=== PATIENT | male | born 2000 | race Caucasian/White ===

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

== ENCOUNTER 2024-07-15 18:35 | Emergency (ER) | payer OTHER, SELFPAY ==
[2024-07-15 18:36] VITALS: BP 131/81; PULSE 106; RESP 18; TEMP 38.9; O2SAT 99; BMI 27.2
[2024-07-15] MEDS: Acetaminophen 500 MG Tablet 1000 MG PO (19:26)
[2024-07-15] MEDS: Ibuprofen 600 MG Tablet PO (19:26)
--- NOTE | 2024-07-15 19:30 | RAD_ITS ---
INDICATION: cough EXAMINATION/TECHNIQUE: X-RAY - XR Chest 2 Views COMPARISON: December 08, 2019 FINDINGS: LINES/DEVICES: None. LUNGS: Mild left basilar infiltrate/atelectasis. No pneumothorax. MEDIASTINUM AND CARDIOVASCULAR STRUCTURES: Cardiac silhouette not enlarged. Central airways and mediastinal contour are unremarkable. BONES AND SOFT TISSUES: Unremarkable. RAD/Chest PA and Lateral IMPRESSION: Mild left basilar infiltrate/atelectasis. Electronically Signed: Kit Lopez DO at 20:28 EDT ,
[2024-07-15 19:39] VITALS: BP 124/86; PULSE 88; RESP 16; TEMP 38.8; O2SAT 98
--- NOTE | 2024-07-15 19:41 | EDS_ITS ---
HPI <ANA Arvizu - Last Filed: 07/15/24 21:06> History of Present Illness Chief Complaint: Cold Sx Narrative Narrative: Patient is a 24-year-old male with no significant medical history presents to the emergency department for 2 days of generalized cough, body aches, fever and chills. Patient denies any sick contacts. Pay states he has been taking Tylenol and is only helping slightly. Patient states that he does have a cough with some yellow sputum production. Here for evaluation. [facility] <ANA Arvizu - Last Filed: 07/15/24 21:06> [facility] Medical History (Updated 07/15/24 @ 22:[address] Johnnie Carrero MD) Abnormal EKG Costochondritis Shortness of breath Syncope Chest pain Allergic rhinitis ADHD Home Medications ?Medication ?Instructions ?Recorded ?Last Taken ?Type fluticasone propionate 50 2 spray intranasal DAILY 08/10/20 Unknown History mcg/actuation nasal spray,suspension (Allergy Relief (fluticasone)) loratadine 10 mg tablet (Claritin) 10 mg PO DAILY 08/10/20 Unknown History methylphenidate HCl 50 mg biphasic 50 mg PO QAM 08/10/20 Unknown History 30-70 capsule,extended release naproxen 250 mg tablet 250 mg PO BID PRN 08/10/20 Unknown History albuterol sulfate 90 mcg/actuation 2 puff inhalation Q4H PRN PRN 07/15/24 Unknown Rx aerosol inhaler (Ventolin HFA) Wheezing 2 weeks #8.5 grams doxycycline hyclate 100 mg capsule 100 mg PO BID 7 days #14 caps 07/15/24 Unknown Rx Allergy/AdvReac Type Severity Reaction Status Date / Time methylphenidate (From Allergy Intermediate nausea, Verified 07/15/24 18:39 Concerta) increased agitation black pepper Allergy Nausea/Vom/ Verified 07/15/24 18:39 Diarrhea Penicillins Allergy Hives Verified 07/15/24 18:39 shrimp Allergy Other Verified 07/15/24 18:39 Family History Grandfather Heart disease ashley, vtach Other Myocardial infarction Social History Smoking Status: Never smoker alcohol intake: never substance use type: does not use ROS <ANA Arvizu - Last Filed: 07/15/24 21:06> ROS ED ROS Narrative Constitutional: Negative for weight loss, weakness. Positive fever and chills Eyes: Negative for vision loss, vision change, double vision ENT: Negative for any sore throat, ear pain, congestion Cardiovascular: Negative for any chest pain, tightness, palpitations Respiratory: Negative for any hemoptysis, dyspnea, dyspnea on exertion, orthopnea. Positive cough, sputum production Gastrointestinal: Negative for any abdominal pain, nausea, vomiting, diarrhea, constipation, blood in stool, blood in vomit : Negative for any urinary frequency, dysuria, retention, blood in urine Muscle skeletal: Negative for any neck pain, back pain. Positive for myalgias Neurological: Negative for any headache, syncope, dizziness Skin: Negative for any rashes, itching, abrasions, lacerations Psychiatric: Negative for any depression, anxiety, stress, suicidal ideation, homicidal ideation Hematologic: Negative for any excessive bruising, easy bleeding EXAM <ANA Arvizu - Last Filed: 07/15/24 21:06> Physical Exam Narrative Exam Narrative: Vital signs reviewed. HEET: Head normocephalic atraumatic, TMs clear bilaterally, external auditory canals are slightly erythematous however patient is fevered. Posterior pharynx is clear, moist mucous membranes. Nares clear bilaterally. Neck: Supple with no lymphadenopathy or tenderness. No signs of meningismus. Cardiac: Regular rate and rhythm no murmurs gallops or rubs, equal peripheral pulses bilaterally. Respiratory: Lungs clear to auscultation bilaterally. No chest tenderness. Abdomen: Soft, nontender, nondistended. No abdominal bruit or pulsatile masses. No hepatosplenomegaly Extremities: No peripheral edema, no signs of gross trauma or deformity. Active full range of motion of all extremities. Neuro: Cranial nerves II through XII intact, no focal neurological deficits. Skin: Clean dry and intact with no rash, purpura, petechiae, vesicles or pustules. Backs/flank: No CVA tenderness, no midline spinal tenderness, no deformity. Psych: Normal mood and affect. No SI, HI or acute psychosis. Const Vital Signs: 07/15/24 18:36 07/15/24 19:12 07/15/24 19:39 Temperature 102.1 F H 101.8 F H Temperature Source Oral Oral Pulse Rate 106 H 88 Respiratory Rate 18 16 Respiratory Pattern Normal Blood Pressure 131/81 H 124/86 H Blood Pressure Mean 97 98 Pulse Ox 99 98 Oxygen Delivery Method Room Air 07/15/24 20:00 Temperature 101.5 F H Temperature Source Oral Pulse Rate 78 Respiratory Rate 16 Respiratory Pattern Blood Pressure 133/72 H Blood Pressure Mean 92 Pulse Ox 98 Oxygen Delivery Method Room Air Positive well nourished and well developed General Appearance ED: well developed <Dr. Johnnie Carrero MD - Last Filed: 07/15/24 22:32> Physical Exam Const Vital Signs: 07/15/24 18:36 07/15/24 19:12 07/15/24 19:39 Temperature 102.1 F H 101.8 F H Temperature Source Oral Oral Pulse Rate 106 H 88 Respiratory Rate 18 16 Respiratory Pattern Normal Blood Pressure 131/81 H 124/86 H Blood Pressure Mean 97 98 Pulse Ox 99 98 Oxygen Delivery Method Room Air 07/15/24 20:00 Temperature 101.5 F H Temperature Source Oral Pulse Rate 78 Respiratory Rate 16 Respiratory Pattern Blood Pressure 133/72 H Blood Pressure Mean 92 Pulse Ox 98 Oxygen Delivery Method Room Air MDM <ANA Arvizu - Last Filed: 07/15/24 21:06> MDM Radiography Diagnostic Testing: Clinical Impression(s) from Imaging Studies Chest X-Ray 07/15/24 19:30 IMPRESSION: Mild left basilar infiltrate/atelectasis. Electronically Signed: Kit Lopez DO at 20:28 EDT Reading Location ID and State: [facility] / [place] Tel [phone], Service support , Treatment and Re-Evaluation :: Differential diagnosis includes however is not limited to: Community-acquired pneumonia, COVID-19, influenza, other virus, Patient does appear uncomfortable secondary his fever however he is not in any distress, patient is nontoxic. Presenting to the emergency department for complaints of cough, fever chills. Patient received a COVID-19 influenza RSV swab as well as a two-view chest x-ray. Oral Tylenol and ibuprofen given. Patient will be reevaluated. All radiologic examinations were read, reviewed by the emergency department attending. From these reads, a plan of care will be put in place. Patient on reevaluation was improving. His temperature and heart rate did decrease. Patient's chest x-ray two-view showed mild left basilar infiltrate. Secondary the patient's cough, patient will be treated with doxycycline twice a day for 1 week. Patient's COVID-19 influenza RSV was negative. At this time, I spoke with the patient as well as the patient's father, they should inspect the patient to improve in the next 2 days. If the patient has worsening fever and chills, worsening shortness of breath, nausea vomiting, the patient needs to return. All questions answered, stable for discharge. <Dr. Johnnie Carrero MD - Last Filed: 07/15/24 22:32> [facility] MDM Narrative Medical decision making narrative: I have personally performed a face to face assessment of the patient and have reviewed the [place] Note. I performed a substantive portion of the visit including all aspects of the following. My torres findings include: History is remarkable for Tmax of 102.1, rhinorrhea, congestion, productive cough of green sputum. Illness started yesterday. Productive cough started today. He had no ill contacts. He denies headache, visual, ocular auditory symptoms. He denies GI symptoms. Exam is vital signs remarkable for temperature of 102.1. He is tachycardic. Blood pressure slightly elevated. He appears flushed. HEENT exam is marked for rhinorrhea/congestion. Lungs are clear auscultation. There is no egophony. Heart is regular without murmur, gallop or rub. Abdomen is benign. No dermatologic lesions other than his face being flushed. Medical Decision Making suspect this is a upper respiratory infection. Need to evaluate for pneumonia. Other additions or changes: X-rays independently viewed interpreted by me as positive for atelectasis left lower lobe versus infiltrate.. In light of this finding patient was reauscultated and there is no abnormal breath sounds noted on the left side. Patient and father were told this most likely represents a viral illness. Awaiting rapid antigen for COVID, influenza and RSV. Radiography Diagnostic Testing: Clinical Impression(s) from Imaging Studies Chest X-Ray 07/15/24 19:30 IMPRESSION: Mild left basilar infiltrate/atelectasis. Electronically Signed: Kit Lopez DO at 20:28 EDT Reading Location ID and State: [facility] / [place] Tel [phone], Service support , Discharge Plan Triage Chief Complaint: Cold Sx ED Midlevel Provider: Mandeep Ware ED Provider: Johnnie Carrero Dx/Rx/DC Orders Clinical Impression: Community acquired pneumonia, Fever in adult Instructions: Chest and Lung Problems, ED Pneumonia (Adult) Prescriptions: New doxycycline hyclate 100 mg capsule 100 mg PO BID 7 Days Qty: 14 0RF albuterol sulfate [Ventolin HFA] 90 mcg/actuation HFA aerosol inhaler 2 puff inhalation Q4H PRN PRN (Reason: Wheezing) 14 Days Qty: 8.5 0RF No Action methylphenidate HCl 50 mg capsule, ER biphasic 30-70 50 mg PO QAM Patient Comments: take 1 capsule by mouth every morning fluticasone propionate [Allergy Relief (fluticasone)] 50 mcg/actuation spray,suspension 2 spray INTRANASAL DAILY Rx Instructions: administer into each nostril naproxen 250 mg tablet 250 mg PO BID PRN loratadine [Claritin] 10 mg tablet 10 mg PO DAILY Stand Alone Forms: ED Work / School Excuse Primary Care Provider: Berto Lundy Referrals: Berto Lundy MD [Primary Care Provider] - Activity Restrictions/Additional Instructions: You need to be aggressive with your fever, you can take 1 g of Tylenol every 6 hours, you can take 600 mg of ibuprofen every 8 hours. Take the antibiotics until finished. Throw the bottle away empty. Use the albuterol as needed. Print Language: Korean Disposition Disposition: Home, Self Care Discharge Date/Time: 07/15/24 21:15
[2024-07-15 20:00] VITALS: BP 133/72; PULSE 78; RESP 16; TEMP 38.6; O2SAT 98
[2024-07-15] MEDS: Doxycycline 100 MG CAPSULE PO (21:10)
== END 2024-07-15 21:15 | disposition home or self-care (01) ==
PROVIDERS: Emergency Provider Emergency Medicine; PCP Family Medicine; Visit Provider Emergency Medicine
DX: J18.9 Pneumonia, unspecified organism (principal); R50.9 Fever, unspecified; J98.11 Atelectasis
CPT/HCPCS: 71046; 87631; 99283

== ENCOUNTER 2025-01-17 15:13 | Emergency (ER) | payer OTHER, SELFPAY ==
[2025-01-17 15:14] VITALS: BP 127/65; PULSE 72; RESP 16; TEMP 37.1; O2SAT 99; BMI 27.2
--- NOTE | 2025-01-17 15:38 | ED.VIS.GI ---
HPI HPI - GI History of Present Illness Chief Complaint: Abd Pain Detail of Chief Complaint: Abdominal pain and diarrhea Informant: patient Narrative Narrative: Patient presents to the emergency department complaint of abdominal pain and diarrhea. Symptoms started yesterday. He describes frequent watery stools about every 30 minutes that were dark and almost black looking. He denies fever. He describes upper abdomen pain. He was seen at urgent care and referred to the ER for evaluation. He denies sick contacts. He denies eating undercooked foods. He denies recent travel. Denies antibiotic usage. No history of peptic ulcer disease. Not anticoagulated. No prior abdominal surgeries. Patient states he took Pepto last night and the diarrhea has since improved but continues to have epigastric pain. [facility] Medical History (Updated 01/17/25 @ 17:[address] Pretty Mcclendon, ) Abnormal EKG Costochondritis Shortness of breath Syncope Chest pain Allergic rhinitis ADHD Home Medications ?Medication ?Instructions ?Recorded ?Last Taken ?Type fluticasone propionate 50 2 spray intranasal DAILY 08/10/20 Unknown History mcg/actuation nasal spray,suspension (Allergy Relief (fluticasone)) loratadine 10 mg tablet (Claritin) 10 mg PO DAILY 08/10/20 Unknown History methylphenidate HCl 50 mg biphasic 50 mg PO QAM 08/10/20 Unknown History 30-70 capsule,extended release naproxen 250 mg tablet 250 mg PO BID PRN 08/10/20 Unknown History albuterol sulfate 90 mcg/actuation 2 puff inhalation Q4H PRN PRN 07/15/24 Unknown Rx aerosol inhaler (Ventolin HFA) Wheezing 2 weeks #8.5 grams doxycycline hyclate 100 mg capsule 100 mg PO BID 7 days #14 caps 07/15/24 Unknown Rx dicyclomine 10 mg capsule 20 mg (2 x 10 mg) PO TIDAC #20 01/17/25 Unknown Rx CAPSULES Allergy/AdvReac Type Severity Reaction Status Date / Time methylphenidate (From Allergy Intermediate nausea, Verified 01/17/25 15:15 Concerta) increased agitation black pepper Allergy Nausea/Vom/ Verified 01/17/25 15:15 Diarrhea Penicillins Allergy Hives Verified 01/17/25 15:15 Family History Grandfather Heart disease ashley, vtach Other Myocardial infarction Social History Smoking Status: Never smoker alcohol intake: never substance use type: does not use ROS ROS ED Review of Systems ROS Unobtainable: other Constitutional Constitutional ED: Reports lethargy; Denies chills, fever(s), sweats or weight loss Eyes Eyes: Denies blurry vision, change in vision or diplopia ENT ENT ED: Denies rhinorrhea or sore throat Cardiovascular Cardiovascular: Denies chest pain, orthopnea or racing heartbeat Respiratory/Chest Respiratory/Chest: Denies cough, dyspnea, dyspnea on exertion, orthopnea or sputum Gastrointestinal Gastrointestinal: Reports abdominal pain, diarrhea and nausea; Denies vomiting Genitourinary Genitourinary ED: Denies dysuria, hematuria or urinary frequency Musculoskeletal Musculoskeletal: Denies arthralgias, back pain, myalgias or neck pain Integumentary Denies abscess, Abrasions or rash Neurologic Neurologic: Denies headache(s) or weakness Psychiatric Psychiatric: Denies anxiety, depression or suicidal thoughts Endocrine Endocrinology: Denies polydipsia, polyphagia or polyuria Hematologic/Lymphatic Hematologic/Lymphatic: Denies easy bleeding, easy bruising or lymphadenopathy Allergic/Immunologic Allergic/Immunologic ED: Denies mouth swelling, tongue swelling or urticaria EXAM Physical Exam Const Vital Signs: 01/17/25 15:14 Temperature 98.7 F Temperature Source Oral Pulse Rate 72 Respiratory Rate 16 Blood Pressure 127/65 H Blood Pressure Mean 85 Pulse Ox 99 Oxygen Delivery Method Room Air Positive well nourished and well developed General Appearance ED: well developed and NAD HEENT Reports TM's clear and moist mucous membranes normocephalic and atraumatic; Negative for trauma or tenderness Tympanic Membrane ED: Yes TM's clear Eyes PERRL and EOMs intact bilaterally General Eye ED: Negative for pale conjunctiva or scleral icterus Neck no lymphadenopathy, supple and no JVD General: Negative for tenderness Chest Wall inspection of chest normal and palpation of chest normal Chest: Negative for tenderness Resp normal respiratory effort and clear to auscultation bilaterally Effort and Inspection: Negative for respiratory distress or pain with movement Auscultation: Negative for rhonchi, wheezes or diminished lung sounds Cardio regular rate, regular rhythm, S1 normal heart sound, S2 normal heart sound and no murmurs Peripheral Pulses: pulses 2+ throughout GI normal to inspection, nondistended, normoactive bowel sounds, soft to palpation, non-distended and no masses; Negative for non-tender GI Narrative: Tenderness palpation over the epigastric region with some mild guarding. There is no rebound, rigidity, or peritoneal signs. Patient does not have any tenderness in the right upper quadrant and has a negative Christine sign Back/Spine no CVA tenderness and no thoracic nor lumbar tenderness Extremity normal to inspection General Extremety ED: Negative for edema General Extremity: Negative for edema Neuro oriented x3, CN's II-XII intact bilaterally, no sensory deficits noted and gait normal Sensorium / Orientation: awake, alert, oriented to person, oriented to place and oriented to time Motor Exam: strength 5/5 throughout and strength abnormal Psych mental status grossly normal Skin no rashes or lesions noted and no wounds MDM MDM MDM Narrative Medical decision making narrative: Patient presents with abdominal pain and diarrhea that started last evening. Pain is intermittent. Denies eating unusual or undercooked food. Denies sick contacts. He said no fever. Clinically looks well. Abdomen exam showed some tenderness in the epigastric region but otherwise benign. There is no rebound or guarding. IV established. He was given normal saline. He was given a GI cocktail and a dose of Bentyl IM. CBC with differential obtained showed white count 6.9 with hemoglobin 15.2 and platelet count of 312. Chemistries unremarkable. LFTs were normal. Lipase normal. Lactate normal at 1.4. Clinically he looks well. I do not think he needs any imaging at this point. Discussed results with patient and his father. His Hemoccult was negative. Will send home with a prescription for Bentyl. Advised to return if worsening pain, fever, vomiting, or condition should worsen anyway. Clinically I suspect a viral gastroenteritis. Lab Data Attestation: I reviewed the patient's lab results. Labs: Laboratory Results - last 24 hr 01/17/25 01/17/25 15:31 15:48 WBC 6.9 RBC 4.88 Hgb 15.2 Hct 44.0 MCV 90.2 MCH 31.1 MCHC 34.5 RDW Std Deviation 40.9 RDW Coeff of Sabina 12.6 Plt Count 312 MPV 10.7 Immature Gran % (Auto) 0.100 Neut % (Auto) 51.3 Lymph % (Auto) 31.8 Sandoval % (Auto) 9.4 Eos % (Auto) 6.7 H Baso % (Auto) 0.7 Absolute Neuts (auto) 3.5 Absolute Lymphs (auto) 2.20 Nucleated RBC % 0 Sodium 137 Potassium 3.7 Chloride 102 Carbon Dioxide 21.4 Anion Gap 13 BUN 9 Creatinine 1.05 Estim Creat Clear Calc 121.12 Est GFR (MDRD) Non-Af 103 BUN/Creatinine Ratio 9.0 L Glucose 89 Lactic Acid 1.4 Calcium 9.1 Total Bilirubin 0.79 AST 20 ALT 14 Alkaline Phosphatase 75 Total Protein 7.1 Albumin 4.3 Globulin 2.8 Albumin/Globulin Ratio 1.5 Lipase 18 Discharge Plan Triage Chief Complaint: Abd Pain ED Provider: Pretty Mcclendon Dx/Rx/DC Orders Clinical Impression: Viral gastroenteritis Instructions: ED Gastroenteritis, Viral (Adult) Prescriptions: New dicyclomine 10 mg capsule 20 mg PO TIDAC Qty: 20 0RF No Action methylphenidate HCl 50 mg capsule, ER biphasic 30-70 50 mg PO QAM Patient Comments: take 1 capsule by mouth every morning fluticasone propionate [Allergy Relief (fluticasone)] 50 mcg/actuation spray,suspension 2 spray INTRANASAL DAILY Rx Instructions: administer into each nostril naproxen 250 mg tablet 250 mg PO BID PRN loratadine [Claritin] 10 mg tablet 10 mg PO DAILY doxycycline hyclate 100 mg capsule 100 mg PO BID 7 Days Qty: 14 0RF albuterol sulfate [Ventolin HFA] 90 mcg/actuation HFA aerosol inhaler 2 puff inhalation Q4H PRN PRN (Reason: Wheezing) 14 Days Qty: 8.5 0RF Primary Care Provider: Berto Lundy Referrals: Berto Lundy MD [Primary Care Provider] - 3-5 Days Print Language: Citizen Of [place] Disposition Disposition: Home, Self Care
[2025-01-17] MEDS: Lidocaine 2% Viscous15 ML UDC 15 ML PO (15:43)
[2025-01-17] MEDS: 0.9% Normal Saline (1000mL) 1,000 ML 125 ML IV (15:43)
[2025-01-17] MEDS: Mag Hydrox/Al Hydrox/Simeth 30 ML UDC PO (15:43)
[2025-01-17] MEDS: Dicyclomine 10 MG Capsule 20 MG PO (15:43)
[2025-01-17 15:49] LABS: Absolute Neutrophil Count 3.5 X10^3/uL (2.0-7.7); Basophil# 0.05 X10^3/uL; Basophil% 0.7 % (0-1); Eosinophil# 0.46 X10^3/uL; Eosinophils% 6.7 % (0-5); Hemoglobin 15.2 g/dL (13.0-16.5); Lymphocyte % 31.8 % (19-41); Mean Corp Hgb Conc 34.5 g/dL (32-36); Mean Corpuscular Hgb 31.1 pg (27.0-32.0); Mean Corpuscular Volume 90.2 fL (80-94); Mean Platelet Vol. 10.7 fl (6.2-12.0); Monocyte# 0.65 X10^3/uL; Monocyte% 9.4 % (0-10); NRBC Flagged by Analyzer 0 % (0-5); Neutrophil # 3.54 X10^3/uL (2.7-7.7); Neutrophil % 51.3 % (47-70); Platelet Count 312 K/mm3 (150-450); RBC Distribution Width CV 12.6 % (11.6-14.6); RBC Distribution Width SD 40.9 fl (35.1-43.9); Red Blood Count 4.88 M/mm3 (4.6-6.2); White Blood Count 6.9 K/mm3 (4.4-11.0)
[2025-01-17 16:31] LABS: Lactic Acid 1.4 mmol/L (0.0-2.0)
[2025-01-17 16:41] LABS: ALB/GLOB Ratio 1.5 RATIO (0.9-2.4); AST(SGOT) 20 U/L (<=37); Alanine Aminotransfer ALT/SGPT 14 U/L (<=46); Albumin, Serum 4.3 g/dL (3.5-5.0); Alkaline Phosphatase 75 U/L (40-129); Anion Gap 13 (5-15); BUN 9 mg/dL (4-19); Calcium,Total 9.1 mg/dL (7.6-11.0); Carbon Dioxide 21.4 mmol/L (21.0-32.0); Chloride 102 mmol/L (98-108); Creatinine, Serum 1.05 mg/dL (0.70-1.20); EST Glomerular Filtration Rate 103 (>60); Estimated Creatinine Clearance 121.12 ml/min (50-250); Globulin 2.8 g/dL (2.2-4.2); Glucose 89 mg/dL (70-99); Lipase 18 U/L (13-75); Potassium 3.7 mmol/L (3.3-5.1); Protein, Total 7.1 g/dL (5.9-8.4); Sodium Level 137 mmol/L (133-145); Total Bilirubin 0.79 mg/dL (0.00-1.30)
[2025-01-17 17:23] VITALS: BP 127/77; PULSE 78; RESP 16; TEMP 36.4; O2SAT 96
== END 2025-01-17 17:25 | disposition home or self-care (01) ==
PROVIDERS: Emergency Provider Emergency Medicine; PCP Family Medicine; Visit Provider Emergency Medicine
DX: A08.4 Viral intestinal infection, unspecified (principal); F90.9 Attention-deficit hyperactivity disorder, unspecified type; Z88.0 Allergy status to penicillin; Z79.899 Other long term (current) drug therapy
CPT/HCPCS: 80053; 82274; 83605; 83690; 85025; 96360; 96361; 99282; A4216